=== PATIENT | female | born 1965 | race Caucasian/White ===

== ENCOUNTER 2018-12-05 02:20 | Emergency (ER) | payer OTHER ==
[~2018-12-05] VITALS: Ht 154.9 cm; Wt 74.4 kg
[2018-12-05 02:29] VITALS: Ht 154.9 cm; Wt 74.4 kg
[2018-12-05 04:59] LABS: BASOPHIL % 0.2 % (0-2); PLATELET COUNT 259 x10^3mcL (130-400); RED CELL DISTRIBUTION WIDTH 14.4 % (11.5-14.5)
[2018-12-05 05:36] LABS: CALCIUM 7.3 mg/dL (8.5-10.1); CARBON DIOXIDE 27.7 mmol/L (21-32); CHLORIDE SERUM 104 mmol/L (98-107); CREATININE SERUM 0.8 mg/dL (0.6-1.0); GFR1 > 60 mL/min; GLUCOSE SERUM 95 mg/dL (74-106); POTASSIUM SERUM 3.5 mmol/L (3.5-5.1); SODIUM SERUM 142 mmol/L (136-145)
[2018-12-05 05:40] LABS: ALBUMIN 3.7 g/dL (3.4-5.0); ALKALINE PHOSPHATASE 80 U/L (46-116); ALT/SGPT 35 U/L (14-59); AST/SGOT 17 U/L (15-37); BILIRUBIN TOTAL 0.63 mg/dL (0.20-1.00); TOTAL PROTEIN, SERUM 7.4 g/dL (6.4-8.2)
[2018-12-05 06:27] VITALS: BP 118/68
[2018-12-05 07:46] LABS: microscopic required? YES; urine erythrocyte 3+ (NEGATIVE)
== END 2018-12-05 06:27 | disposition home or self-care (01) ==
LOC: ED 02:20
PROVIDERS: Emergency Medicine
DX: N30.90 Cystitis, unspecified without hematuria (principal); N39.0 Urinary tract infection, site not specified; R11.2 Nausea with vomiting, unspecified; Z90.710 Acquired absence of both cervix and uterus
CPT/HCPCS: J0696; J2270; J2405; J7030; J7060